=== PATIENT | male | born 1935 | race Caucasian/White ===

== ENCOUNTER 2017-10-26 11:36 | Emergency (ER) | payer MEDICARE ==
[~2017-10-26] VITALS: Ht 177.8 cm; Wt 116.0 kg
[2017-10-26 11:40] VITALS: BP 136/80; PULSE 88; RESP 20; TEMP 97.4; O2SAT 88
[2017-10-26] MEDS ORDERED: COUM2.5T PO (11:55)
[2017-10-26] MEDS ORDERED: ASPI81CH7 CHEW (11:55)
[2017-10-26] MEDS ORDERED: SIMV10TA PO (11:55)
[2017-10-26] MEDS ORDERED: COUM5TAB PO (11:55)
[2017-10-26 13:23] LABS: INTERNATIONAL NORMALIZED RATIO 2.4 RATIO; PROTHROMBIN TIME - PATIENT 24.3 SEC (9.8-11.6)
--- NOTE | 2017-10-26 13:30 | PD ---
HPI Chief Complaint: Nosebleed Time Seen by Provider: 12:19 Travel History International Travel<30 days: No Contact w/Intl Traveler<30days: No Traveled to known affect area: No History of Present Illness HPI This is a 81-year-old man with ER complaining of nasal bleeding. Nasal bleeding started this morning, left nostril mainly, patient is on Coumadin 5 mg daily and last dose was last night. He denies bleeding anywhere else, no black stools or blood in urine. Denies any headache or shortness of breath. He had nasal bleeding before that stopped on its own but this one took longer. Patient reports EtOH use and had a couple hard liquor drinks last night. PFSH Past Medical History Hx Anticoagulant Therapy: Yes (COUMADIN) Coronary Artery Disease: Yes Diabetes: No Patient Takes Glucophage: No Diminished Hearing: No Tetanus Vaccination: < 5 Years Past Surgical History Cardiac Surgery: Yes (DEFIBRILATOR) Social History Alcohol Use: Yes (DAILY) Tobacco Use: No Substance Use: No Allergies-Medications (Allergen,Severity, Reaction): Coded Allergies: No Known Allergies (Unverified , 10/26/17) Reported Meds & Prescriptions Reported Meds & Active Scripts Active Reported Simvastatin 10 Mg Tab Unknown Dose PO DAILY Aspirin Children's (Aspirin) 81 Mg Chew 81 Mg CHEW DAILY Coumadin (Warfarin) 2.5 Mg Tab 2.5 Mg PO MOTUWEFRSASU Coumadin (Warfarin) 5 Mg Tab 5 Mg PO TH Review of Systems Except as stated in HPI: all other systems reviewed are Neg Physical Exam Narrative GENERAL: Alert oriented 3 no acute distress SKIN: Focused skin assessment warm/dry. HEAD: Atraumatic. Normocephalic. EYES: Pupils equal and round. No scleral icterus. No injection or drainage. ENT: Small bleeding from the left nostril that stopped on its own after applying pressure. Mucous membranes pink and moist. NECK: Trachea midline. No JVD. CARDIOVASCULAR: Regular rate and rhythm. No murmur appreciated. RESPIRATORY: No accessory muscle use. Clear to auscultation. Breath sounds equal bilaterally. GASTROINTESTINAL: Abdomen soft, non-tender, nondistended. Hepatic and splenic margins not palpable. MUSCULOSKELETAL: No obvious deformities. No clubbing. No cyanosis. No edema. NEUROLOGICAL: Awake and alert. No obvious cranial nerve deficits. Motor grossly within normal limits. Normal speech. PSYCHIATRIC: Appropriate mood and affect; insight and judgment normal. Data Data Last Documented VS Vital Signs Date Time Temp Pulse Resp B/P (MAP) Pulse Ox O2 Delivery O2 Flow Rate FiO2 10/26/17 13:33 84 16 94 10/26/17 11:40 97.4 136/80 (98) Orders Orders Prothrombin Time / Inr (Pt) (10/26/17 12:12) Ed Discharge Order (10/26/17 13:29) Labs Laboratory Tests Test 10/26/17 12:15 Prothrombin Time 24.3 SEC Prothromb Time International Ratio 2.4 RATIO MDM Medical Decision Making Medical Screen Exam Complete: Yes Emergency Medical Condition: Yes Differential Diagnosis Super therapeutic INR, nasal bleeding. Narrative Course This is an 81-year-old male presents to the ER complaining of nasal bleeding from left nostril. Nasal bleeding stopped on its own after applying pressure to the nose. INR is 2.4 patient has no bleeding from anywhere else. The patient improved in the ER and is stable to be discharged home and was watched and no more bleeding occurred. Diagnosis Primary Impression: Nasal bleeding Disposition: 01 DISCHARGE HOME Condition: Stable Alfred Russell MD Oct 26, 2017 13:30
== END 2017-10-26 13:38 | disposition home or self-care (01) ==
LOC: PHED 11:36
DX: R04.0 Epistaxis (principal); I25.10 Atherosclerotic heart disease of native coronary artery without angina pectoris; Z79.01 Long term (current) use of anticoagulants; Z72.89 Other problems related to lifestyle
CPT/HCPCS: 85610; 99283